=== PATIENT | female | born 2005 | race Caucasian/White ===

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

== ENCOUNTER 2024-08-25 11:11 | Emergency (ER) | payer OTHER, SELFPAY ==
[2024-08-25 11:27] VITALS: BP 117/82; PULSE 74; RESP 16; TEMP 36.6; O2SAT 98
--- NOTE | 2024-08-25 11:40 | ECG_ITS ---
Test Date: 2024-08-25 12:02:31 Measurements Intervals [place] Rate: 73 P: 46 ND: 141 QRS: 50 QRSD: 80 T: 45 QT: 361 QTc: 400 Interpretive Statements SINUS RHYTHM WITH MARKED SINUS ARRHYTHMIA RSR' IN V1 OR V2, PROBABLY NORMAL VARIANT BASELINE ARTIFACT- I, II, AVR NORMAL ECG No previous ECG available for comparison Electronically Signed On 08-25-2024 12:05:04 CDT by Kevin Roach D.O.
[2024-08-25 11:54] VITALS: BP 113/76; PULSE 82; RESP 16; TEMP 36.9; O2SAT 100
[2024-08-25 12:06] LABS: Glucose Point of Care 101 mg/dl (65-105)
[2024-08-25 12:09] LABS: BEDSIDEPREGUCG Negative (Negative)
[2024-08-25 12:16] VITALS: BP 106/76; PULSE 75; RESP 12
[2024-08-25 12:22] VITALS: PULSE 78; RESP 10; O2SAT 100
--- NOTE | 2024-08-25 12:30 | ED.SYNCOPE ---
HPI - Syncope General Chief Complaint: Syncope Stated Complaint: passing out Time Seen by Provider: 08/25/24 12:02 History of Present Illness HPI narrative: 19-year-old otherwise healthy female presenting to the emergency department for several episodes of syncope. Patient states that this morning while at work she had a lightheaded sensation and feeling tunnel vision. She laid her head down and syncopized for several moments. Patient woke up and was briefly confused but quickly returned to her normal mentation and answering all questions appropriately. She did not have any trauma or injury. Denies any headache, nausea, vomiting, chest pain, chest palpitations, abdominal pain or back pain. Similar event occurred several days ago in the shower. She saw her primary doctor between these 2 events and was referred to cardiology for Holter monitor but was not able to stab list this yes. Patient has no symptoms during my initial assessment, denies any complaints at this time but is concerned about her recurrent syncopal events. No cardiac disease history in childhood, no coronary disease in the family, no other medical problems. Patient denies any chance of and has an implanted Nexplanon. Related Data Home Medications ?Medication ?Instructions ?Recorded ?Confirmed ?Last Taken ?Type sertraline 25 mg tablet mg 06/26/23 12/10/23 Unknown History Allergies Allergy/AdvReac Type Severity Reaction Status Date / Time No Known Allergies Allergy Verified 12/10/23 10:04 Review of Systems Review of Systems: As reviewed above in HPI [facility] Past Medical History Medical History History of COVID-19 04/2020 Migraines Family History Family History Grandparent Breast cancer Diabetes mellitus Hyperlipidemia Social History Social History Smoking status: Never smoker Alcohol intake: never Substance use: never Exam Narrative: GENERAL: [Well-appearing, well-nourished, and in no acute distress.] HEAD: [Normocephalic, atraumatic.] EYES: [PERRLA and EOMI.] ENT: Nares clear, no rhinorrhea or epistaxis. Mucous membranes moist. NECK: Supple. CHEST: [Clear to auscultation. No respiratory distress.] HEART: [Regular rate and rhythm]. No murmur heard. [Normal peripheral pulses.] ABDOMEN: [Soft, nondistended], [nontender], [No rigidity or guarding] EXTREMITIES: Normal range of motion. [No edema.] SKIN: Warm, dry, no rash. NEURO: [No focal deficits]. Alert and oriented [x3.] PSYCH: [Normal mood and affect.] Course Vital Signs Vital signs: Vital Signs Temperature 36.6 C 08/25/24 11:27 Pulse Rate 74 08/25/24 11:27 Respiratory Rate 16 08/25/24 11:27 Blood Pressure 117/82 08/25/24 11:27 Pulse Oximetry 98 08/25/24 11:27 Temperature 36.9 C 08/25/24 11:54 Pulse Rate 65 08/25/24 12:45 Respiratory Rate 11 L 08/25/24 12:45 Blood Pressure 106/76 08/25/24 12:16 Pulse Oximetry 99 08/25/24 12:45 Oxygen Delivery Room Air 08/25/24 11:54 MDM - Syncope MDM Narrative Medical decision making narrative: 19-year-old otherwise healthy female presenting to the emergency department for several syncopal events over last few days. Today she was at work when she has syncopal event proceeded by prodrome of lightheadedness and hot sensation with tunnel vision and. She briefly passed out and regained consciousness quickly with return to baseline mentation. No neurological deficits. Similar event occurred in the shower 2 days ago. He saw her doctor yesterday who referred her to Cardiology with a Holter monitor. No cardiac disease history. She has normal vital signs here, unremarkable examination with clear breath sounds and strong palpable pulses without any regularity. She is comfortable on my assessment without any complaints at this time. Neurological assessment normal. Low suspicion for any acute intracranial pathology, cardiac pathology less likely but given her recurrent syncopal events with the left pursue this with EKG and Holter monitoring. CBC, CMP and magnesium level were ordered. test obtained. Patient and family were discussing plan of care bedside and comfortable with Holter monitor being arranged here in the emergency department and discharged home with Cardiology follow-up after negative workup. Point care glucose obtained normal at 101. Workup shows no leukocytosis or anemia normal platelet count. Electrolytes are within normal limits, normal renal function and hepatic function panel. Normal glucose. Holter monitor was set up here in the emergency department and patient was safe for discharge home at this time. Medical Records Attestation: I reviewed the patient's medical records. Lab Data Attestation: I reviewed the patient's lab results. 08/25/24 13:11 08/25/24 13:11 Labs: Lab Results 08/25/24 08/25/24 08/25/24 Range/Units 12:03 12:04 13:11 WBC 7.3 (4.5-10.0) K/mm3 RBC 4.68 (4.2-5.4) M/mm3 Hgb 13.1 (12.0-15.0) g/dL Hct 40.0 (37.0-47.0) % MCV 85.5 (80-100) fl MCH 28.0 (26-34) pg MCHC 32.8 (32-36) g/dl RDW 12.7 (11.5-14.5) % Plt Count 287 (150-375) k/mm3 MPV 9.6 (7.4-10.4) fl Immature Gran % (Auto) 0.3 (0-0.5) % Neut % (Auto) 66.7 (45.5-73.1) % Lymph % (Auto) 24.7 (18.3-44.2) % Dukes % (Auto) 6.7 (2.6-8.5) % Eos % (Auto) 1.2 (0-4.4) % Baso % (Auto) 0.4 (0.2-1.2) % Lymph # (Auto) 1.80 (0.9-3.2) K/mm3 Dukes # (Auto) 0.5 (0.1-0.6) K/mm3 Eos # (Auto) 0.1 (0-0.3) K/mm3 Baso # (Auto) 0.0 (0.0-0.1) K/mm3 Abs Immat Gran (auto) 0.02 (0.00-0.031) K/mm3 Absolute Neuts (auto) 4.9 (1.3-6.7) K/mm3 Absolute Nucleated RBC 0.000 (0.0-0.012) K/mm3 Nucleated RBC % 0.0 (0.0-0.2) % Sodium 141 (137-145) mmol/L Potassium 4.1 (3.4-5.0) mmol/L Chloride 105 (98-107) mmol/L Carbon Dioxide 24 (22-30) mmol/L Anion Gap 12 (4-12) mmol/L BUN 8 (7-17) mg/dL Creatinine 0.57 L (0.7-1.0) mg/dL Estim Creat Clear Calc 96 ml/min Estimated GFR > 60 (59 - ) Glucose 91 (65-110) mg/dL POC Capillary Glucose 101 (65-105) mg/dl Calcium 9.5 (8.4-10.2) mg/dL Magnesium 2.0 (1.6-2.3) mg/dL Total Bilirubin 0.4 (0.2-1.3) mg/dL AST 23 (14-36) U/L ALT 17 (6-35) U/L Alkaline Phosphatase 69 (38-126) U/L Total Protein 8.0 (6.3-8.2) g/dL Albumin 4.8 (3.5-5.1) g/dL POC Urine HCG, Qual Negative (Negative) ECG Data EKG #1: Attestation: I personally reviewed and interpreted this ECG as follows: ECG completion date: 08/25/24 ECG completion time: 12:02 Prior ECG tracings: not available for review Interpretation: Sinus rhythm, no signs of ST segment elevations, depressions or inversions. No significant ectopy. Normal QTC of 400, QRS of 80, MN interval 141. Normal rate of 73. Regular rate rhythm and axis. Overall sinus rhythm without any previous EKG for comparison. Discharge Plan Discharge Clinical Impression: Syncope Patient Disposition: Home Condition: Stable Instructions: Antibiotic Form, Syncope (ED) Additional Instructions: Your workup appears reassuring, your EKG shows no significant abnormalities but given your passing out episodes we will establish you with a Holter monitor and have you follow-up with outpatient cardiology. Return with any new or worsening concerns. Patient Language: Sri Lankan Prescriptions: No Action sertraline 25 mg tablet Nexplanon 68 mg implant 1 implant subdermal ONCE Qty: 1 0RF Rx Instructions: as a single dose Other Ambulatory Orders: [place] holter monitor 3-7 day (Routine) Timeframe: 1 Day Location: Determined by Patient Ordered By: Matias Duval Follow-up/Referrals: Kennedi Garcia MD [Physician] - 1 Week (Recurrent syncopal events, Holter monitor established in the ED) Ye,ZION Schumacher [Primary Care Provider] - Time of Disposition: 14:17
[2024-08-25 12:43] VITALS: PULSE 73; RESP 16; O2SAT 92
[2024-08-25 12:45] VITALS: PULSE 65; RESP 11; O2SAT 99
--- OUTSIDE RECORDS SUMMARY | 2024-08-25 13:07 | XMS_ITS | Clinical Summary ---
Author Organization [facility] Address [address] [place] [address] Care Team Providers Care Cylinder Grinder Name Role Phone Nataly Martinez MD Primary Care Provider [phone] Source Comments [facility] [employer],non-owned Affiliates and Associated Physician Practices is amultiple site organization consisting of ambulatory clinics and hospital sitesin [place], [place], [place] and [place]. This disclosure is being madepursuant to the Care Everywhere program and may not contain all information available regarding this patient. Last updated 18.[employer] Allergies No known active allergies Medications * Be aware that medications may not be up to date on this document. Alwaysverify current medications with the patient. nortriptyline (PAMELOR) 10 MG capsule Take one capsule by mouth at bedtime for one week. After one week take two capsules at bedtime. 90 capsule 1 0 Active Additional Information Patient not taking.Reported on 07/08/2020 etonogestrel (NEXPLANON) 68 MG implant 68 mg by Subdermal route as directed Active Active Problems Problem Noted Date Diagnosed Date Concussion with no loss of consciousness 019 Resolved Problems Problem Noted Date Diagnosed Date Resolved Date Constipation 01/10/2015 02/07/2015 Social History Tobacco Use Types Packs/Day Years Used Date Smoking Tobacco: Never Smokeless Tobacco: Never Alcohol Use Standard Drinks/Week Comments Not Asked 0 (1 standard drink = 0.6 oz pur e alcohol) Comments No Sex and Gender Information Value Date Recorded Sex Assigned at Not on file Legal Sex Female 5:31 AM MANAGER STERILE PROCESSING Gender Identity Not on file Sexual Orientation Not on file Last Filed Vital Signs Vital Sign Reading Time Taken Comments Blood Pressure 100/62 07/08/2020 10:53 AM MANAGER STERILE PROCESSING Pulse 90 07/08/2020 10:53 AM MANAGER STERILE PROCESSING Temperature 36.9 C (98.5 F) 07/08/2020 10:53 AM MANAGER STERILE PROCESSING Respiratory Rate 16 07/08/2020 10:53 AM MANAGER STERILE PROCESSING Oxygen Saturation 98% 07/08/2020 10:53 AM MANAGER STERILE PROCESSING Inhaled Oxygen Concentration - - Weight 56.7 kg (125 lb) 07/08/2020 10:53 AM MANAGER STERILE PROCESSING Height 152.4 cm (5') 07/08/2020 10:53 AM MANAGER STERILE PROCESSING Body Mass Index 24.41 07/08/2020 10:53 AM MANAGER STERILE PROCESSING Plan of Treatment Health Maintenance Due Date Last Done Comments HIV SCREENING 01/28/2019 HPV VACCINE (1 - 3-dose series) 01/28/2019 CHLAMYDIA/GONORRHEA SCREENING 2020 MENINGOCOCCAL (Group B) VACC INE SHARED DECISION-MAKING (1 of 2 - Standard) 2020 HEPATITIS C SCREENING 01/24/2022 DTAP/TDAP/TD VACCINES (1 - Tdap) 01/28/2023 HEPATITIS B VACCINE (1 of 3 - 19+ 3-dose series) 01/28/2023 COVID-19 VACCINE (1 - 2023-2 5 season) 2024 DEPRESSION SCREENING 05/05/2024 INFLUENZA VACCINE (Season Ended) 2025 ZOSTER VACCINE (1 of 2) 01/28/2054 HIB VACCINE Aged Out No longer eligi ble based on patient's age to complete this topic MENINGOCOCCAL GROUPS A/C/Y/W VACCINE Aged Out No longer eligible b ased on patient's age to complete this topic PNEUMOCOCCAL VACCINE Aged Out No long er eligible based on patient's age to complete this topic Insurance [employer] Care Teams Cylinder Grinder Relationship Specialty Start Date End Date Nataly Martinez MD [address] [place] [address] [address] [place] [address] PCP - General Pediatrics 12/26/14
[2024-08-25 13:28] LABS: Basophils Percent Auto 0.4 % (0.2-1.2); Eosinophils Absolute Auto 0.1 K/mm3 (0-0.3); Eosinophils Percent Auto 1.2 % (0-4.4); Hemoglobin 13.1 g/dL (12.0-15.0); Immature Granulocyte Absolute 0.02 K/mm3 (0.00-0.031); Immature Granulocyte Percent A 0.3 % (0-0.5); Lymphocytes Percent Auto 24.7 % (18.3-44.2); Mean Corpuscular HGB Conc 32.8 g/dl (32-36); Mean Corpuscular Volume 85.5 fl (80-100); Mean Platelet Volume 9.6 fl (7.4-10.4); Monocytes Absolute Auto 0.5 K/mm3 (0.1-0.6); Monocytes Percent Auto 6.7 % (2.6-8.5); Neutrophils Absolute Auto 4.9 K/mm3 (1.3-6.7); Neutrophils Percent Auto 66.7 % (45.5-73.1); Platelet Count Result 287 k/mm3 (150-375); Red Blood Count 4.68 M/mm3 (4.2-5.4); Red Cell Distribution Width 12.7 % (11.5-14.5); White Blood Count 7.3 K/mm3 (4.5-10.0)
[2024-08-25 13:45] LABS: Alanine Aminotransferase 17 U/L (6-35); Albumin Level 4.8 g/dL (3.5-5.1); Alkaline Phosphatase 69 U/L (38-126); Anion Gap 12 mmol/L (4-12); Aspartate Amino Transferase 23 U/L (14-36); Bilirubin,Total 0.4 mg/dL (0.2-1.3); Blood Urea Nitrogen 8 mg/dL (7-17); Calcium 9.5 mg/dL (8.4-10.2); Carbon Dioxide 24 mmol/L (22-30); Chloride 105 mmol/L (98-107); Estimated CRCL calculation 96 ml/min; Estimated Glomerular Filt Rate > 60; Glucose 91 mg/dL (65-110); Potassium 4.1 mmol/L (3.4-5.0); Sodium 141 mmol/L (137-145)
--- OUTSIDE RECORDS SUMMARY | 2024-08-25 14:00 | XMS_ITS | Clinical Summary ---
Author Organization [facility] Address [address] [place] [address] Care Team Providers Care Truck Hopper Name Role Phone Nataly Martinez MD Primary Care Provider [phone] Source Comments [facility],non-owned Affiliates and Associated Physician Practices is amultiple site organization consisting of ambulatory clinics and hospital sitesin [place], [place], [place] and [place]. This disclosure is being madepursuant to the Care Everywhere program and may not contain all information available regarding this patient. Last updated 18.[facility] Allergies No known active allergies Medications * [...] on file Legal Sex Female 5:31 AM VENEER JOINER Gender Identity Not on file Sexual Orientation Not on file Last Filed Vital Signs Vital Sign Reading Time Taken Comments Blood Pressure 100/62 07/08/2020 10:53 AM VENEER JOINER Pulse 90 07/08/2020 10:53 AM VENEER JOINER Temperature 36.9 C (98.5 F) 07/08/2020 10:53 AM VENEER JOINER Respiratory Rate 16 07/08/2020 10:53 AM VENEER JOINER Oxygen Saturation 98% 07/08/2020 10:53 AM VENEER JOINER Inhaled Oxygen Concentration - - Weight 56.7 kg (125 lb) 07/08/2020 10:53 AM VENEER JOINER Height 152.4 cm (5') 07/08/2020 10:53 AM VENEER JOINER Body Mass Index 24.41 07/08/2020 10:53 AM VENEER JOINER Plan of Treatment Health Maintenance Due Date [...] complete this topic Insurance [employer] Care Teams Truck Hopper Relationship Specialty Start Date End Date Nataly Martniez MD [address] [place] [address] [address] [place] [address] PCP - General Pediatrics 12/26/14
--- NOTE | 2024-08-25 14:31 | PC.NURSE ---
Pt. receiving Holter monitor.
--- NOTE | 2024-08-30 16:31 | WPDHOLTEREM ---
Holter/Event Monitor Holter/Event Monitor Date of procedure: 08/25/24 Holter/Event Procedure: 3-7 Day Holter Monitor Indications: Syncope Conclusion: 1. 17 hours holter monitor on 08/25/24. 2. Underlying rhythm is sinus rhythm. HR range 51-137 bpm; average HR 77 bpm. 3. No premature supraventricular complexes. No supraventricular tachycardia. 4. No premature ventricular complexes. No ventricular tachycardia. 5. No significant pauses greater than 3 seconds. 6. Patient reports 5 episodes of symptoms of lightheadedness, tunnel vision, blurry vision, racing which demonstrate sinus rhythm, HR range 74-79 bpm.
== END 2024-08-25 15:04 | disposition home or self-care (01) ==
PROVIDERS: Physician Assistant; Emergency Provider Student in an Organized Health Care Education/Training Program; PCP Nurse Practitioner
DX: R55 Syncope and collapse (principal)
CPT/HCPCS: 36415; 80053; 81025; 82948; 83735; 85025; 93005; 93242; 99284

== ENCOUNTER 2024-09-10 06:43 | Outpatient (CLI) | payer OTHER, SELFPAY ==
--- NOTE | ~2024-09-10 | MR_ITS ---
MRI of the brain Clinical History: Syncope, muscle twitching Technique: Axial and sagittal T1-weighted images were acquired. These were followed by axial T2-weigh maribell, diffusion weighted, gradient, and FLAIR images. Findings: No abnormal signal seen in the brain parenchyma. No acute infarct, intracranial hemorrhage, or mass lesion. Ventricles and subarachnoid spaces are unremarkable. Orbits are unremarkable. Paranasal sinuses and m astoid air cells are clear. Major intracranial flow voids are intact. Sagittal midline structures are intact. IMPRESSION: Normal exam. Reviewed, dictated and finalized at location M. IMPRESSION: Normal exam.
--- OUTSIDE RECORDS SUMMARY | 2024-09-10 06:46 | XMS_ITS | Clinical Summary ---
Author Organization [facility] [employer] Address [address] [place] [address] Care Team Providers Care Commercial Drone Pilot Name Role Phone Nataly Martinez MD Primary Care Provider [phone] Source Comments [facility] [employer],non-owned Affiliates and Associated Physician Practices is amultiple site organization consisting of ambulatory clinics and hospital sitesin [place], [place], [place] and [place]. This disclosure is being madepursuant to the Care Everywhere program and may not contain all information available regarding this patient. Last updated 18.[employer] [facility] Allergies No known active allergies Medications * [...] on file Legal Sex Female 5:31 AM CUTTING TABLE OPERATOR FIRST Gender Identity Not on file Sexual Orientation Not on file Last Filed Vital Signs Vital Sign Reading Time Taken Comments Blood Pressure 100/62 07/08/2020 10:53 AM CUTTING TABLE OPERATOR FIRST Pulse 90 07/08/2020 10:53 AM CUTTING TABLE OPERATOR FIRST Temperature 36.9 C (98.5 F) 07/08/2020 10:53 AM CUTTING TABLE OPERATOR FIRST Respiratory Rate 16 07/08/2020 10:53 AM CUTTING TABLE OPERATOR FIRST Oxygen Saturation 98% 07/08/2020 10:53 AM CUTTING TABLE OPERATOR FIRST Inhaled Oxygen Concentration - - Weight 56.7 kg (125 lb) 07/08/2020 10:53 AM CUTTING TABLE OPERATOR FIRST Height 152.4 cm (5') 07/08/2020 10:53 AM CUTTING TABLE OPERATOR FIRST Body Mass Index 24.41 07/08/2020 10:53 AM CUTTING TABLE OPERATOR FIRST Plan of Treatment Health Maintenance Due Date [...] complete this topic Insurance [employer] Care Teams Commercial Drone Pilot Relationship Specialty Start Date End Date Nataly Martinez MD [address] [place] [address] [address] [place] [address] PCP - General Pediatrics 12/26/14
== END 2024-09-10 06:44 | disposition home or self-care (01) ==
PROVIDERS: PCP Nurse Practitioner; Visit Provider Nurse Practitioner
DX: R55 Syncope and collapse (principal); R25.3 Fasciculation
CPT/HCPCS: 70551